=== PATIENT | female | born 1990 | race Caucasian/White ===

== ENCOUNTER → 2023-07-30 07:55 | Outpatient (REF) | payer OTHER, SELFPAY | LOC: PNTC 07:55 | PROVIDERS: ATTENDING PHYSICIAN Obstetrics & Gynecology | DX: O99.210 Obesity complicating pregnancy, unspecified trimester (principal) | CPT/HCPCS: 76811 ==

== ENCOUNTER → 2023-09-09 17:03 | Outpatient (REF) | payer OTHER, SELFPAY | LOC: PNTC 17:03 | PROVIDERS: ATTENDING PHYSICIAN Obstetrics & Gynecology | DX: O99.210 Obesity complicating pregnancy, unspecified trimester (principal) | CPT/HCPCS: 76816 ==

== ENCOUNTER 2023-10-11 20:22 | Observation (INO) | payer OTHER, SELFPAY ==
[2023-10-11 20:50] VITALS: BP 112/69; BMI 34.0
[2023-10-11 20:52] LABS: Hematocrit 34.4 % (37.0-47.0); Hemoglobin 11.1 g/dL (12.0-16.0); Mean Corp Hgb Conc. 32.3 g/dL (33.0-37.0); Mean Corpuscular Hgb 23.1 pg (27.0-31.0); Mean Corpuscular Volume 71.7 fL (81.0-99.0); Platelet Count 260 10^3/uL (130-400); White Blood Cell Count 9.2 10^3/uL (4.8-10.8)
[2023-10-11 20:54] LABS: Urine Albumin Negative (Neg - Trace); Urine Bilirubin Negative (Negative); Urine Character Clear (Clear); Urine Color Yellow; Urine Glucose Negative (Negative); Urine Ketone Negative (Negative); Urine Leukocyte Negative (Negative); Urine Nitrite Negative (Negative); Urine Occult Blood Negative (Negative); Urine Specific Gravity 1.005 (<1.030); Urine Urobilinogen Negative (Neg - 1+)
[2023-10-11 21:10] LABS: ALT (SGPT) 21 U/L (0-35); AST (SGOT) 25 U/L (14-36); Albumin 3.5 g/dl (3.5-5.0); Alkaline Phosphatase 238 U/L (38-126); Blood Urea Nitrogen 7 mg/dl (7-17); Calcium 9.3 mg/dl (8.4-10.2); Carbon Dioxide 22 mmol/L (22-30); Chloride 106 mmol/L (98-107); Estimated Creatinine Clearance > 125 ml/min; Glucose 106 mg/dl (70-99); Sodium 131 mmol/L (135-145); Total Bilirubin 0.2 mg/dl (0.2-1.3); Total Protein 6.3 g/dl (6.3-8.2); eGFR > 60.00
== END 2023-10-11 21:46 | disposition home or self-care (01) ==
LOC: LDRP 20:22
PROVIDERS: ADMITTING PHYSICIAN Obstetrics & Gynecology
DX: H53.8 Other visual disturbances (principal); D56.3 Thalassemia minor; K58.9 Irritable bowel syndrome, unspecified; H33.309 Unspecified retinal break, unspecified eye
CPT/HCPCS: 80053; 81003; 85027

== ENCOUNTER → 2023-10-22 17:01 | Outpatient (REF) | payer OTHER, SELFPAY | LOC: PNTC 17:01 | PROVIDERS: ATTENDING PHYSICIAN Obstetrics & Gynecology | DX: O99.210 Obesity complicating pregnancy, unspecified trimester (principal) | CPT/HCPCS: 76816 ==

== ENCOUNTER → 2023-11-18 07:57 | Outpatient (REF) | payer BC, SELFPAY | LOC: PNTC 07:57 | PROVIDERS: ATTENDING PHYSICIAN Obstetrics & Gynecology | DX: O99.210 Obesity complicating pregnancy, unspecified trimester (principal); Z34.00 Encounter for supervision of normal first pregnancy, unspecified trimester | CPT/HCPCS: 76816 ==

== ENCOUNTER → 2023-12-03 08:04 | Outpatient (REF) | payer BC, SELFPAY | LOC: PNTC 08:04 | PROVIDERS: ATTENDING PHYSICIAN Obstetrics & Gynecology | DX: O36.60X0 Maternal care for excessive fetal growth, unspecified trimester, not applicable or unspecified (principal) | CPT/HCPCS: 36415; 59025; 76816 ==

== ENCOUNTER 2023-12-09 19:22 | Inpatient (IN) | payer BC, SELFPAY ==
[2023-12-09 19:36] VITALS: BP 132/88; BMI 37.2
[2023-12-09 20:01] LABS: % Basophils 0.6 % (0-2); % Immature Granulocytes 0.7 % (0-0.5); % Lymphocytes 29.3 % (20.5-51.1); % Monocytes 6.6 % (1.7-9.3); % Neutrophils 61.8 % (42.2-75.2); Absolute Basophils 0.1 10^3/uL (0-0.2); Absolute Eosinophils 0.1 10^3/uL (0-0.7); Absolute Immature Granulocytes 0.1 10^3/uL (0-0.05); Absolute Lymphocytes 2.8 10^3/uL (1.2-3.4); Absolute Monocytes 0.6 10^3/uL (0.1-0.6); Absolute Neutrophils 5.9 10^3/uL (1.4-6.5); Hematocrit 37.1 % (37.0-47.0); Hemoglobin 12.5 g/dL (12.0-16.0); Mean Corp Hgb Conc. 33.7 g/dL (33.0-37.0); Mean Corpuscular Hgb 23.2 pg (27.0-31.0); Mean Corpuscular Volume 68.8 fL (81.0-99.0); Mean Platelet Volume 10.2 fL (7.4-10.4); Nucleated Red Blood Cells % 0 %; Platelet Count 282 10^3/uL (130-400); Red Blood Cell Count 5.39 10^6/uL (4.20-5.40); Red Cell Dist. Width 15.1 % (11.5-14.5); White Blood Cell Count 9.6 10^3/uL (4.8-10.8)
[2023-12-09] MEDS: CYTOTEC 50 MICROGRAM VAG (20:27)
[2023-12-09] MEDS: LR 1000 IV (23:21)
[2023-12-10] MEDS: CYTOTEC 50 MICROGRAM PO ×2 (00:35→05:09)
[2023-12-10] MEDS: CYTOTEC PO ×2 (09:13→13:23)
[2023-12-10] MEDS: LR 1000 IV (09:25)
[2023-12-10] MEDS: PITOCIN 30 UNITS/NSS 500 ML IV (09:27)
[2023-12-10] MEDS: MORPHINE SULFATE 2 MG IV (11:33)
[2023-12-10] MEDS: FENTANYL/BUPIVACAINE 100 EPIDURAL ×2 (14:28→21:52)
[2023-12-10] MEDS: SUBLIMAZE 100 MCG EPIDURAL (14:28)
[2023-12-11] MEDS: LR 1000 IV (00:50)
[2023-12-11] MEDS: TYLENOL 1000 MG PO (05:01)
[2023-12-11] MEDS: BICITRA 30 ML PO (05:01)
[2023-12-11] MEDS: ANCEF 10 IV (05:10)
[2023-12-11] MEDS: ZITHROMAX INFUSION 250 IV (05:17)
[2023-12-11] MEDS: PITOCIN 30 UNITS/NSS 500 ML IV (06:25)
[2023-12-11] MEDS: MORPHINE SULFATE 2 MG IV (07:12)
[2023-12-11] MEDS: METHERGINE INJECTION 0.200000000000000011 MG IM (07:13)
[2023-12-11] MEDS: TRANEXAMIC ACID 100 IV (08:25)
[2023-12-11] MEDS: HEMABATE 250 MCG IM (08:27)
[2023-12-11 08:54] LABS: Hematocrit 33.1 % (37.0-47.0); Mean Corp Hgb Conc. 33.2 g/dL (33.0-37.0); Mean Corpuscular Hgb 23.1 pg (27.0-31.0); Mean Corpuscular Volume 69.4 fL (81.0-99.0); Mean Platelet Volume 10.8 fL (7.4-10.4); Platelet Count 277 10^3/uL (130-400); Red Blood Cell Count 4.77 10^6/uL (4.20-5.40); White Blood Cell Count 20.8 10^3/uL (4.8-10.8)
[2023-12-11 09:06] LABS: INR 0.98
[2023-12-11 09:07] LABS: APTT 30.2 Sec (23.4-35.0)
[2023-12-11] MEDS: TORADOL 15 MG IV ×3 (11:52→23:38)
[2023-12-12] MEDS: PERCOCET 5/325 1 TABLET PO ×2 (02:25→17:58)
[2023-12-12] MEDS: TORADOL 15 MG IV (05:38)
[2023-12-12 06:06] LABS: Hematocrit 21.2 % (37.0-47.0); Mean Corpuscular Hgb 23.4 pg (27.0-31.0); Mean Corpuscular Volume 68.8 fL (81.0-99.0); Mean Platelet Volume 10.3 fL (7.4-10.4); Platelet Count 207 10^3/uL (130-400); Red Blood Cell Count 3.08 10^6/uL (4.20-5.40); Red Cell Dist. Width 14.8 % (11.5-14.5); White Blood Cell Count 13.3 10^3/uL (4.8-10.8)
[2023-12-12 06:26] LABS: Hemoglobin 7.2 g/dL (12.0-16.0)
--- NOTE | 2023-12-12 07:56 | W.PN.ANS.POP ---
Anesthesia Post Operative
- Anesthesia Post Op Note
Vital Signs Stable-See Nursing Note: Yes
Airway Patent: Yes
Adequate Pain Control: Yes
Change in Mental Status: No
Current Postoperative Nausea & Vomiting: No
Anesthesia Complications: No
General Anesthetic Recall: No
Unplanned Admission: No
Post Op Hydration Adequate: Yes
[2023-12-12] MEDS: SENOKOT-S 1 TABLET PO (08:26)
[2023-12-12] MEDS: VITAMIN C 500 MG PO (11:33)
[2023-12-12] MEDS: FEOSOL 325 MG PO (11:33)
[2023-12-12] MEDS: MOTRIN 600 MG PO ×2 (11:44→17:53)
[2023-12-12] MEDS: TYLENOL 650 MG PO (11:44)
[2023-12-13] MEDS: PERCOCET 5/325 1 TABLET PO ×2 (02:03→08:34)
[2023-12-13] MEDS: MOTRIN 600 MG PO ×4 (02:03→22:22)
[2023-12-13] MEDS: FEOSOL 325 MG PO (08:34)
[2023-12-13] MEDS: SENOKOT-S 1 TABLET PO (08:34)
[2023-12-13] MEDS: VITAMIN C 500 MG PO (08:34)
--- NOTE | 2023-12-13 11:38 | CON.MD ---
Consultation - Medical
-
dictated.
L Serous Otitis Media
pop ears, restart afrin x3 days, start rhinocort, try E[place] ear popper.
if persists call and can place tube.
[2023-12-13] MEDS: TYLENOL 650 MG PO ×2 (14:45→22:22)
[2023-12-13 16:30] LABS: Syphilis/T. pallidum Ab Reflex Negative (Negative)
[2023-12-13] MEDS: AFRIN NASAL SPRAY 2 SPRAYS NASAL (20:02)
[2023-12-14] MEDS: TYLENOL 650 MG PO (04:33)
[2023-12-14] MEDS: MOTRIN 600 MG PO (04:33)
[2023-12-14] MEDS: FEOSOL 325 MG PO (08:00)
[2023-12-14] MEDS: VITAMIN C 500 MG PO (08:00)
[2023-12-14] MEDS: AFRIN NASAL SPRAY 2 SPRAYS NASAL (14:07)
--- NOTE | 2023-12-17 08:17 | W.DS.TRANS ---
DC Summary - Telephone Service Representative
-
Discharge Instructions:
Discharge Diagnosis/Procedures primary cs
Instructions:
Stand-Alone Forms: LDRP Delivery
Changes to Home Medications: No
Discharge Medications:
DC Medications w/original date entered in [facility]
ferrous sulfate 325 mg (65 mg iron) tablet (iron) 325 mg PO DAILY Supplement 10/11/23
prenat.vits,rin,ouy-rbqy-yjnee 1 tab PO DAILY Supplement 10/11/23
ibuprofen 600 mg tablet 600 mg PO Q6HPRN PRN cramps #90 tabs 12/14/23
Home Medication Changes
Pending Results: No
Total time spent discharging patient (in min): 20
== END 2023-12-14 13:25 | disposition home or self-care (01) | DRG 787 ==
LOC: LDRP 19:22
PROVIDERS: Obstetrics & Gynecology; ADMITTING PHYSICIAN Obstetrics & Gynecology; CONSULT PHYSICIAN Otolaryngology
PROC: 3E0P7VZ Introduction of Hormone into Female Reproductive, Via Natural or Artificial Opening (ICD-10-PCS; 2023-12-09)
PROC: 3E033VJ Introduction of Other Hormone into Peripheral Vein, Percutaneous Approach (ICD-10-PCS; 2023-12-10)
PROC: 10907ZC Drainage of Amniotic Fluid, Therapeutic from Products of Conception, Via Natural or Artificial Opening (ICD-10-PCS; 2023-12-10)
PROC: 10H07YZ Insertion of Other Device into Products of Conception, Via Natural or Artificial Opening (ICD-10-PCS; 2023-12-10)
PROC: 10D00Z1 Extraction of Products of Conception, Low, Open Approach (ICD-10-PCS; 2023-12-11)
DX: O36.63X0 Maternal care for excessive fetal growth, third trimester, not applicable or unspecified (principal); O72.1 Other immediate postpartum hemorrhage; O76 Abnormality in fetal heart rate and rhythm complicating labor and delivery; O62.1 Secondary uterine inertia; Z3A.39 39 weeks gestation of pregnancy; Z37.0 Single live birth
CPT/HCPCS: 88307; 85025; 85027; 85610; 85730; 86780; 86850; 86900; 86901